=== PATIENT | male | born 1995 | race Two or more races ===

== ENCOUNTER 2019-05-22 12:19 | Emergency (ER) | payer OTHER ==
[2019-05-22 12:27] VITALS: BP 136/64
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
== END 2019-05-22 12:52 | disposition home or self-care (01) ==
LOC: ED 12:19
DX: S13.4XXA Sprain of ligaments of cervical spine, initial encounter (principal); V53.5XXA Driver of pick-up truck or van injured in collision with car, pick-up truck or van in traffic accident, initial encounter; W22.11XA Striking against or struck by driver side automobile airbag, initial encounter; Y92.410 Unspecified street and highway as the place of occurrence of the external cause
CPT/HCPCS: 99281; 99282